=== PATIENT | female | born 1950 | race Caucasian/White ===

== ENCOUNTER 2021-03-29 23:06 | Emergency (ER) | payer OTHER ==
[2021-03-29 23:13] VITALS: BP 117/81; PULSE 62; TEMP 97.7; BMI 22.7
[2021-03-29] MEDS ORDERED: diphenhydrAMINE HCL 50 MG CAPSULE ONE (23:18)
[2021-03-29] MEDS ORDERED: diphenhydrAMINE HCL 50 MG CAPSULE PO ONE (23:21)
== END 2021-03-29 23:34 | disposition home or self-care (01) ==
LOC: FER 23:06 → SUPCPDRO 23:06 → FER 23:34
DX: L23.7 Allergic contact dermatitis due to plants, except food (principal)
CPT/HCPCS: 99283-25

== ENCOUNTER 2022-04-02 18:30 | Emergency (ER) | payer OTHER ==
[2022-04-02 18:55] VITALS: BP 112/80; PULSE 81; TEMP 100.3; BMI 21.7
[2022-04-02] MEDS ORDERED: guaiFENesin/CODEINE 10 ML UNIT-DOSE CUPS PO ONE (19:01)
[2022-04-02] MEDS ORDERED: IBUPROFEN 600 MG TABLET (FP) PO ONE ×2 (19:02→19:10)
[2022-04-02] MEDS ORDERED: guaiFENesin/CODEINE 10 ML UNIT-DOSE CUPS ONE (19:10)
== END 2022-04-02 19:42 | disposition home or self-care (01) ==
LOC: FER 18:30
DX: Z20.822 Contact with and (suspected) exposure to COVID-19 (principal)
CPT/HCPCS: 0241U-QW; 71045-TC-FY; 99284-25